=== PATIENT | female | born 1985 | race Caucasian/White ===

== ENCOUNTER 2016-09-13 05:29 | Day surgery (SDC) | payer BC ==
[~2016-09-13] VITALS: Ht 162.6 cm; Wt 59.9 kg
[~2016-09-13 05:29] MED LIST: ENDOCET 5-3251 EACH PO; FIBER GUMMIES1 EACH PO; IBUPROFEN800 MG PO; PRENATAL VITAM1 EA11 PO; PROBIOTIC1 EAC1 PO
[2016-09-13 06:23] VITALS: BP 102/67
[2016-09-13] MEDS ORDERED: PERCOCET 5/31 TABLET PO (08:25)
[2016-09-13] MEDS ORDERED: IBUPROFEN800 MG PO (08:25)
[2016-09-13 09:30] VITALS: BP 96/59
[2016-09-13 10:26] VITALS: BP 99/64
[2016-09-13 11:40] VITALS: BP 101/59
[2016-09-13 15:25] VITALS: BP 113/63
== END 2016-09-13 11:43 | disposition home or self-care (01) ==
LOC: SDC 05:29
PROC: 0UB74ZZ Excision of Bilateral Fallopian Tubes, Percutaneous Endoscopic Approach (ICD-10-PCS; principal; 2016-09-13)
DX: Z30.2 Encounter for sterilization (principal)
CPT/HCPCS: 88302; J1100; J1885; J2175; J2250; J2405; J2710; J3010